=== PATIENT | female | born 1990 | race Caucasian/White ===

== ENCOUNTER 2018-03-09 13:09 | Emergency (ER) | payer SELFPAY ==
[~2018-03-09] VITALS: Ht 167.6 cm; Wt 83.6 kg
[2018-03-09 13:17] VITALS: BP 116/71; PULSE 90; TEMP 99.2
[2018-03-09 15:00] LABS: COLLECTION METHOD CLEAN CATCH
[2018-03-09 15:08] LABS: MUCOUS Present /lpf; PH 5 (5-8); SQUAMOUS EPITHELIAL None Seen /hpf; URINE APPEARANCE Clear; URINE BACTERIA None Seen /hpf; URINE BILIRUBIN Negative (NEGATIVE); URINE BLOOD Negative (NEGATIVE); URINE COLOR Yellow; URINE GLUCOSE Negative (NEGATIVE); URINE KETONE Negative (NEGATIVE); URINE LEUKOCYTE ESTERASE Negative (NEGATIVE); URINE NITRATE Negative (NEGATIVE); URINE PROTEIN(semi-quant) Negative (NEGATIVE); URINE RBC 0-2 /hpf
[2018-03-09] MEDS ORDERED: FLEXERIL 1010 MG/TAB PO (15:40)
[2018-03-09] MEDS ORDERED: ZOFRAN 4MG T4 MG/TAB PO (15:40)
== END 2018-03-09 16:30 | disposition home or self-care (01) ==
LOC: COL.ER 13:09
PROVIDERS: Nurse Practitioner
DX: G43.909 Migraine, unspecified, not intractable, without status migrainosus (principal); M54.5 Low back pain; J45.909 Unspecified asthma, uncomplicated; F17.210 Nicotine dependence, cigarettes, uncomplicated; Z90.49 Acquired absence of other specified parts of digestive tract; Z98.890 Other specified postprocedural states; Z88.0 Allergy status to penicillin; W10.9XXA Fall (on) (from) unspecified stairs and steps, initial encounter
CPT/HCPCS: J1200; J1885; J2360; J2550

== ENCOUNTER 2018-05-01 17:24 | Emergency (ER) | payer SELFPAY ==
[~2018-05-01] VITALS: Ht 167.6 cm; Wt 81.8 kg
[~2018-05-01 17:24] MED LIST: FLEXERIL 1010 MG/TAB PO; ZOFRAN 4MG T4 MG/TAB PO
[2018-05-01 17:31] VITALS: TEMP 98.3
[2018-05-01 18:02] LABS: COLLECTION METHOD CLEAN CATCH
[2018-05-01 18:05] LABS: BASO % 0.4 % (0.0-2.0); EOS # 0.2 (0.0-0.7); EOS % 2.2 % (0-4.0); GRAN # 4.1 (1.4-6.5); LYMPH % 38.6 % (20.0-51.0); MEAN CELL VOLUME 81 fl (80.0-100.0); MEAN CORPUSCULAR HGB CONC 31 g/dl (33.0-37.0); MEAN PLATELET VOLUME 11.7 fl (7.4-10.4); MONO # 0.5 (0.1-0.6); MONO % 6.4 % (1.7-9.3); PLATELET COUNT 228 K/mm3 (130-400); RED BLOOD COUNT 3.67 M/mm3 (4.10-5.30); REDCELL DISTRIBUTION WIDTH-CV 16.8 % (11.5-14.5)
[2018-05-01 18:07] LABS: HEMATOCRIT 29.6 % (37.0-47.0); HEMOGLOBIN 9.1 g/dl (12.5-16.0); MEAN CORPUSCULAR HEMOGLOBIN 25 pg (27.0-31.0)
[2018-05-01 18:09] LABS: PH 6 (5-8); URINE APPEARANCE Clear; URINE BACTERIA None Seen /hpf; URINE BILIRUBIN Negative (NEGATIVE); URINE BLOOD Negative (NEGATIVE); URINE COLOR Yellow; URINE GLUCOSE Negative (NEGATIVE); URINE KETONE Negative (NEGATIVE); URINE LEUKOCYTE ESTERASE Negative (NEGATIVE); URINE NITRATE Negative (NEGATIVE); URINE PROTEIN(semi-quant) Negative (NEGATIVE); URINE RBC 0-2 /hpf; URINE UROBILINOGEN Negative (NEGATIVE)
[2018-05-01 18:15] LABS: ALANINE AMINOTRANSFERASE 29 U/L (9-52); ALBUMIN 4.2 gm/dL (3.5-5.0); ALKALINE PHOSPHATASE 61 U/L (50-136); ANION GAP 7 mmol/L (7-16); AST,SGOT 22 U/L (15-37); BILIRUBIN,TOTAL 0.5 mg/dL (0.0-1.0); BLOOD UREA NITROGEN 9 mg/dL (7-17); CALCIUM 9.4 mg/dL (8.4-10.2); CARBON DIOXIDE 26 mmol/L (22-30); CHLORIDE 109 mmol/L (98-107); CREATININE, serum 0.63 mg/dL (0.52-1.25); GLUCOSE 84 mg/dL (74-106); LIPASE 71 U/L (23-300); SODIUM 142 mmol/L (137-145); TOTAL PROTEIN 7.7 gm/dL (6.4-8.2)
[2018-05-01 18:16] LABS: C-REACTIVE PROTEIN < 0.5 mg/dL (0.0-0.9)
[2018-05-01] MEDS ORDERED: ALBUTEROL S0.4 MG/ML PO (18:17)
[2018-05-01] MEDS ORDERED: ULTRAM 50MG TAB50 MG PO (19:33)
[2018-05-01 19:43] VITALS: BP 99/54; PULSE 77
== END 2018-05-01 19:50 | disposition home or self-care (01) ==
LOC: COL.ER 17:24
PROVIDERS: Nurse Practitioner
DX: R10.31 Right lower quadrant pain (principal); R10.11 Right upper quadrant pain; J45.909 Unspecified asthma, uncomplicated; F17.210 Nicotine dependence, cigarettes, uncomplicated; Z88.0 Allergy status to penicillin; Z90.49 Acquired absence of other specified parts of digestive tract; Z98.890 Other specified postprocedural states
CPT/HCPCS: J1170; J1885; J2405; J7030; Q9967

== ENCOUNTER 2018-05-22 14:53 | Emergency (ER) | payer SELFPAY ==
[~2018-05-22] VITALS: Ht 167.6 cm; Wt 79.5 kg
[~2018-05-22 14:53] MED LIST changes: +ALBUTEROL S0.4 MG/ML PO; +ULTRAM 50MG TAB50 MG PO
[2018-05-22 14:57] VITALS: TEMP 98.2
[2018-05-22 16:32] LABS: COLLECTION METHOD CLEAN CATCH
[2018-05-22 16:37] LABS: BASO % 0.2 % (0.0-2.0); EOS # 0.1 (0.0-0.7); EOS % 0.6 % (0-4.0); GRAN % 88.1 % (42.2-75.2); HEMOGLOBIN 10.1 g/dl (12.5-16.0); LYMPH % 6.5 % (20.0-51.0); MEAN CELL VOLUME 81 fl (80.0-100.0); MEAN CORPUSCULAR HEMOGLOBIN 25 pg (27.0-31.0); MEAN CORPUSCULAR HGB CONC 31 g/dl (33.0-37.0); MEAN PLATELET VOLUME 11.5 fl (7.4-10.4); MONO # 0.7 (0.1-0.6); MONO % 4.2 % (1.7-9.3); PLATELET COUNT 203 K/mm3 (130-400); RED BLOOD COUNT 4.09 M/mm3 (4.10-5.30); REDCELL DISTRIBUTION WIDTH-CV 17.2 % (11.5-14.5)
[2018-05-22 16:39] LABS: HEMATOCRIT 33.1 % (37.0-47.0)
[2018-05-22 16:44] LABS: MUCOUS Present /lpf; PH 5 (5-8); URINE APPEARANCE Hazy; URINE BACTERIA None Seen /hpf; URINE BILIRUBIN Negative (NEGATIVE); URINE BLOOD Negative (NEGATIVE); URINE COLOR Yellow; URINE GLUCOSE Negative (NEGATIVE); URINE KETONE Negative (NEGATIVE); URINE LEUKOCYTE ESTERASE Negative (NEGATIVE); URINE NITRATE Negative (NEGATIVE); URINE PROTEIN(semi-quant) Negative (NEGATIVE); URINE RBC 0-2 /hpf; URINE UROBILINOGEN Negative (NEGATIVE)
[2018-05-22 16:56] LABS: ALBUMIN 4.5 gm/dL (3.5-5.0); BILIRUBIN,TOTAL 0.8 mg/dL (0.0-1.0); CALCIUM 9.5 mg/dL (8.4-10.2); CREATININE, serum 0.74 mg/dL (0.52-1.25); TOTAL PROTEIN 8.3 gm/dL (6.4-8.2)
[2018-05-22 21:46] VITALS: BP 118/72; PULSE 79
== END 2018-05-22 21:52 | disposition home or self-care (01) ==
LOC: COL.ER 14:53
PROVIDERS: Emergency Medicine
DX: K52.9 Noninfective gastroenteritis and colitis, unspecified (principal); B34.9 Viral infection, unspecified; F17.210 Nicotine dependence, cigarettes, uncomplicated; Z90.49 Acquired absence of other specified parts of digestive tract; Z88.0 Allergy status to penicillin
CPT/HCPCS: J2765; J3010; J7030; Q9967

== ENCOUNTER 2018-07-24 14:19 | Emergency (ER) | payer BC ==
[~2018-07-24] VITALS: Ht 167.6 cm; Wt 81.8 kg
[2018-07-24 14:28] VITALS: BP 117/74; TEMP 98.7
[2018-07-24 15:26] LABS: COLLECTION METHOD CLEAN CATCH
[2018-07-24 15:35] LABS: MUCOUS Present /lpf; PH 5 (5-8); URINE APPEARANCE Hazy; URINE BACTERIA Rare /hpf; URINE BILIRUBIN Negative (NEGATIVE); URINE BLOOD Negative (NEGATIVE); URINE COLOR Straw; URINE GLUCOSE Negative (NEGATIVE); URINE KETONE Negative (NEGATIVE); URINE LEUKOCYTE ESTERASE Negative (NEGATIVE); URINE NITRATE Negative (NEGATIVE); URINE PROTEIN(semi-quant) Negative (NEGATIVE); URINE RBC 0-2 /hpf; URINE UROBILINOGEN Negative (NEGATIVE)
[2018-07-24] MEDS ORDERED: NORCO 325 MG-51 TAB PO (16:04)
[2018-07-24 16:13] VITALS: PULSE 76
== END 2018-07-24 16:11 | disposition home or self-care (01) ==
LOC: COL.ER 14:19
PROVIDERS: Nurse Practitioner
DX: M54.5 Low back pain (principal); F17.210 Nicotine dependence, cigarettes, uncomplicated; J45.909 Unspecified asthma, uncomplicated; Z98.890 Other specified postprocedural states; Z90.49 Acquired absence of other specified parts of digestive tract

== ENCOUNTER 2018-10-02 00:57 | Emergency (ER) | payer BC ==
[~2018-10-02] VITALS: Ht 167.6 cm; Wt 79.5 kg
[~2018-10-02 00:57] MED LIST changes: +NORCO 325 MG-51 TAB PO
[2018-10-02 01:02] VITALS: TEMP 97.7
[2018-10-02 01:35] LABS: BASO # 0.1 (0.0-0.2); BASO % 0.5 % (0.0-2.0); EOS # 0.4 (0.0-0.7); GRAN % 49.9 % (42.2-75.2); LYMPH # 3.9 (1.2-3.4); LYMPH % 39.4 % (20.0-51.0); MEAN CELL VOLUME 83 fl (80.0-100.0); MEAN CORPUSCULAR HGB CONC 30 g/dl (33.0-37.0); MEAN PLATELET VOLUME 11.3 fl (7.4-10.4); MONO # 0.6 (0.1-0.6); MONO % 5.9 % (1.7-9.3); PLATELET COUNT 273 K/mm3 (130-400); RED BLOOD COUNT 3.57 M/mm3 (4.10-5.30); REDCELL DISTRIBUTION WIDTH-CV 16.5 % (11.5-14.5)
[2018-10-02 01:36] LABS: HEMATOCRIT 29.6 % (37.0-47.0); HEMOGLOBIN 8.8 g/dl (12.5-16.0); MEAN CORPUSCULAR HEMOGLOBIN 25 pg (27.0-31.0)
[2018-10-02 01:51] LABS: ALBUMIN 4.3 gm/dL (3.5-5.0); BILIRUBIN,TOTAL 0.5 mg/dL (0.0-1.0); C-REACTIVE PROTEIN 0.6 mg/dL (0.0-0.9); CREATININE, serum 0.73 (0.52-1.25); POTASSIUM 3.1 mmol/L (3.4-5.0); TOTAL PROTEIN 8.1 gm/dL (6.4-8.2)
[2018-10-02 02:20] LABS: MAGNESIUM 1.8 mg/dL (1.6-2.3)
[2018-10-02 02:33] LABS: COLLECTION METHOD CLEAN CATCH
[2018-10-02 02:38] LABS: MUCOUS Present /lpf; PH 5 (5-8); URINE APPEARANCE Hazy; URINE BACTERIA Rare /hpf; URINE BILIRUBIN Negative (NEGATIVE); URINE BLOOD Negative (NEGATIVE); URINE COLOR Yellow; URINE GLUCOSE Negative (NEGATIVE); URINE KETONE Negative (NEGATIVE); URINE LEUKOCYTE ESTERASE Negative (NEGATIVE); URINE NITRATE Negative (NEGATIVE); URINE PROTEIN(semi-quant) Negative (NEGATIVE); URINE RBC 0-2 /hpf; URINE UROBILINOGEN Negative (NEGATIVE)
[2018-10-02] MEDS ORDERED: PROTONIX 40MG T40 MG PO (03:32)
[2018-10-02] MEDS ORDERED: CARAFATE 1GM1 G PO (03:32)
[2018-10-02] MEDS ORDERED: ZOFRAN ODT4 MG PO (03:32)
[2018-10-02 03:51] VITALS: BP 115/74; PULSE 63
== END 2018-10-02 03:52 | disposition home or self-care (01) ==
LOC: COL.ER 00:57
PROVIDERS: Emergency Medicine
DX: K29.70 Gastritis, unspecified, without bleeding (principal); D64.9 Anemia, unspecified; G89.29 Other chronic pain; M54.9 Dorsalgia, unspecified; Z90.49 Acquired absence of other specified parts of digestive tract; Z98.51 Tubal ligation status
CPT/HCPCS: J2405; J2550; J7030

== ENCOUNTER → 2018-11-13 | Outpatient (CLI) | payer BC ==
[~2018-11-13] MED LIST changes: +CARAFATE 1GM1 G PO; +PROTONIX 40MG T40 MG PO; +ZOFRAN ODT4 MG PO
== END ==
LOC: COL.RAD 14:37
DX: M54.16 Radiculopathy, lumbar region (principal)

== ENCOUNTER → 2018-12-23 | Outpatient (CLI) | payer BC | LOC: MHCPAIN 10:32 | DX: G89.29 Other chronic pain (principal); M47.817 Spondylosis without myelopathy or radiculopathy, lumbosacral region; M54.16 Radiculopathy, lumbar region; M53.3 Sacrococcygeal disorders, not elsewhere classified | CPT/HCPCS: G0463 ==

== ENCOUNTER → 2018-12-30 | Outpatient (CLI) | payer BC | LOC: COL.RAD 14:15 | DX: N94.6 Dysmenorrhea, unspecified (principal); N92.0 Excessive and frequent menstruation with regular cycle ==

== ENCOUNTER 2019-01-06 21:05 | Emergency (ER) | payer BC ==
[~2019-01-06] VITALS: Ht 167.6 cm; Wt 86.4 kg
[2019-01-06 21:22] VITALS: BP 112/70; TEMP 97.8
[2019-01-06 21:47] LABS: COLLECTION METHOD CLEAN CATCH
[2019-01-06 21:58] LABS: BASO # 0.1 (0.0-0.2); BASO % 0.4 % (0.0-2.0); EOS # 0.2 (0.0-0.7); EOS % 1.8 % (0-4.0); GRAN # 5.4 (1.4-6.5); GRAN % 47.7 % (42.2-75.2); LYMPH # 4.9 (1.2-3.4); LYMPH % 42.7 % (20.0-51.0); MEAN CELL VOLUME 82 fl (80.0-100.0); MEAN CORPUSCULAR HGB CONC 30 g/dl (33.0-37.0); MEAN PLATELET VOLUME 11.1 fl (7.4-10.4); MONO # 0.8 (0.1-0.6); PLATELET COUNT 312 K/mm3 (130-400); RED BLOOD COUNT 3.98 M/mm3 (4.10-5.30); REDCELL DISTRIBUTION WIDTH-CV 17.2 % (11.5-14.5)
[2019-01-06 22:11] LABS: MUCOUS Present /lpf; PH 6 (5-8); URINE APPEARANCE Clear; URINE BACTERIA Rare /hpf; URINE BILIRUBIN Negative (NEGATIVE); URINE BLOOD 3+ (NEGATIVE); URINE COLOR Yellow; URINE GLUCOSE Negative (NEGATIVE); URINE KETONE Negative (NEGATIVE); URINE LEUKOCYTE ESTERASE Negative (NEGATIVE); URINE NITRATE Negative (NEGATIVE); URINE PROTEIN(semi-quant) Negative (NEGATIVE); URINE RBC 20-50 /hpf; URINE UROBILINOGEN Negative (NEGATIVE)
[2019-01-06 22:17] LABS: HEMATOCRIT 32.7 % (37.0-47.0); HEMOGLOBIN 9.8 g/dl (12.5-16.0); MEAN CORPUSCULAR HEMOGLOBIN 25 pg (27.0-31.0)
[2019-01-06 22:38] LABS: ALBUMIN 4.4 gm/dL (3.5-5.0); BILIRUBIN,TOTAL 0.5 mg/dL (0.0-1.0); C-REACTIVE PROTEIN 0.7 mg/dL (0.0-0.9); CALCIUM 9.7 mg/dL (8.4-10.2); CREATININE, serum 0.71 (0.52-1.25); POTASSIUM 3.5 mmol/L (3.4-5.0)
[2019-01-07] MEDS ORDERED: ZOFRAN ODT4 MG PO (00:56)
[2019-01-07] MEDS ORDERED: NORCO 325 MG-51 TAB PO (00:56)
[2019-01-07 01:18] VITALS: PULSE 97
== END 2019-01-07 01:23 | disposition home or self-care (01) ==
LOC: COL.ER 21:05
PROVIDERS: Physician Assistant
DX: R10.9 Unspecified abdominal pain (principal); D53.9 Nutritional anemia, unspecified; R31.9 Hematuria, unspecified; R11.2 Nausea with vomiting, unspecified; Z87.891 Personal history of nicotine dependence; Z90.49 Acquired absence of other specified parts of digestive tract; Z98.51 Tubal ligation status
CPT/HCPCS: J1885; J2270; J2405; J2550; J7030; Q9967

== ENCOUNTER 2019-01-31 16:15 | Emergency (ER) | payer BC ==
[~2019-01-31] VITALS: Ht 167.6 cm; Wt 88.6 kg
[2019-01-31] MEDS ORDERED: NEURONTIN300 MG/CAP PO (16:18)
[2019-01-31] MEDS ORDERED: NAPROSYN500 MG PO (16:19)
[2019-01-31 16:20] VITALS: TEMP 98
[2019-01-31 16:41] LABS: BASO # 0.1 (0.0-0.2); BASO % 0.5 % (0.0-2.0); EOS # 0.1 (0.0-0.7); EOS % 1.2 % (0-4.0); GRAN # 6.4 (1.4-6.5); GRAN % 60.7 % (42.2-75.2); LYMPH # 3.3 (1.2-3.4); LYMPH % 30.8 % (20.0-51.0); MEAN CELL VOLUME 83 fl (80.0-100.0); MEAN CORPUSCULAR HGB CONC 30 g/dl (33.0-37.0); MEAN PLATELET VOLUME 10.5 fl (7.4-10.4); MONO # 0.7 (0.1-0.6); MONO % 6.3 % (1.7-9.3); PLATELET COUNT 381 K/mm3 (130-400); RED BLOOD COUNT 3.79 M/mm3 (4.10-5.30); REDCELL DISTRIBUTION WIDTH-CV 17.6 % (11.5-14.5)
[2019-01-31 16:53] LABS: ALBUMIN 4.3 gm/dL (3.5-5.0); BILIRUBIN,TOTAL 0.6 mg/dL (0.0-1.0); C-REACTIVE PROTEIN 1.1 mg/dL (0.0-0.9); CALCIUM 9.4 mg/dL (8.4-10.2); CREATININE, serum 0.7 (0.52-1.25); POTASSIUM 3.7 mmol/L (3.4-5.0); TOTAL PROTEIN 8.2 gm/dL (6.4-8.2)
[2019-01-31 17:00] LABS: HEMATOCRIT 31.6 % (37.0-47.0); HEMOGLOBIN 9.5 g/dl (12.5-16.0); MEAN CORPUSCULAR HEMOGLOBIN 25 pg (27.0-31.0)
[2019-01-31 18:50] VITALS: BP 109/80; PULSE 77
== END 2019-01-31 18:52 | disposition home or self-care (01) ==
LOC: COL.ER 16:15
PROVIDERS: Emergency Medicine
DX: N93.8 Other specified abnormal uterine and vaginal bleeding (principal); D64.9 Anemia, unspecified; Z90.49 Acquired absence of other specified parts of digestive tract; Z98.51 Tubal ligation status
CPT/HCPCS: J1885; J2405; J3010; J7030; Q9967

== ENCOUNTER 2019-02-20 18:57 | Emergency (ER) | payer SELFPAY ==
[~2019-02-20] VITALS: Ht 167.6 cm; Wt 91.4 kg
[~2019-02-20 18:57] MED LIST changes: +NAPROSYN500 MG PO; +NEURONTIN300 MG/CAP PO
[2019-02-20] MEDS ORDERED: PERCOCET 325 MG1 TA2 (19:26)
[2019-02-20 19:27] VITALS: TEMP 98.2
[2019-02-20] MEDS ORDERED: VRAYLAR3 MG (19:27)
[2019-02-20] MEDS ORDERED: MOTRIN 600600 MG/TAB (19:27)
[2019-02-20 20:29] LABS: BASO # 0.1 (0.0-0.2); BASO % 0.5 % (0.0-2.0); EOS # 0.2 (0.0-0.7); EOS % 2.1 % (0-4.0); GRAN # 6.5 (1.4-6.5); GRAN % 60.2 % (42.2-75.2); LYMPH # 3.2 (1.2-3.4); LYMPH % 29.2 % (20.0-51.0); MEAN CELL VOLUME 85 fl (80.0-100.0); MEAN CORPUSCULAR HGB CONC 30 g/dl (33.0-37.0); MEAN PLATELET VOLUME 11.7 fl (7.4-10.4); MONO # 0.8 (0.1-0.6); MONO % 7.3 % (1.7-9.3); PLATELET COUNT 209 K/mm3 (130-400); RED BLOOD COUNT 3.66 M/mm3 (4.10-5.30); REDCELL DISTRIBUTION WIDTH-CV 18.4 % (11.5-14.5)
[2019-02-20 20:32] LABS: HEMATOCRIT 31.1 % (37.0-47.0); HEMOGLOBIN 9.3 g/dl (12.5-16.0); MEAN CORPUSCULAR HEMOGLOBIN 25 pg (27.0-31.0)
[2019-02-20 20:43] LABS: ALBUMIN 4.1 gm/dL (3.5-5.0); BILIRUBIN,TOTAL 0.3 mg/dL (0.0-1.0); C-REACTIVE PROTEIN 0.7 mg/dL (0.0-0.9); CREATININE, serum 0.6 (0.52-1.25); POTASSIUM 3.3 mmol/L (3.4-5.0); TOTAL PROTEIN 7.5 gm/dL (6.4-8.2)
[2019-02-20 21:07] VITALS: BP 103/65
[2019-02-20 21:10] LABS: COLLECTION METHOD CLEAN CATCH
[2019-02-20 21:23] LABS: MUCOUS Present /lpf; PH 6 (5-8); SQUAMOUS EPITHELIAL >50 /hpf; URINE APPEARANCE Cloudy; URINE BACTERIA Rare /hpf; URINE BILIRUBIN Negative (NEGATIVE); URINE BLOOD 2+ (NEGATIVE); URINE COLOR Yellow; URINE GLUCOSE Negative (NEGATIVE); URINE KETONE Negative (NEGATIVE); URINE LEUKOCYTE ESTERASE 3+ (NEGATIVE); URINE NITRATE Negative (NEGATIVE); URINE PROTEIN(semi-quant) 2+ (NEGATIVE); URINE UROBILINOGEN Negative (NEGATIVE)
[2019-02-20] MEDS ORDERED: OMNICEF 300MG300 MG PO (21:57)
[2019-02-20 22:43] VITALS: PULSE 79
== END 2019-02-20 22:43 | disposition home or self-care (01) ==
LOC: COL.ER 18:57
PROVIDERS: Physician Assistant
DX: N39.0 Urinary tract infection, site not specified (principal); G89.18 Other acute postprocedural pain; Z87.891 Personal history of nicotine dependence; Z98.51 Tubal ligation status; Z90.710 Acquired absence of both cervix and uterus; Z90.49 Acquired absence of other specified parts of digestive tract
CPT/HCPCS: A4216; J0696; J2270; J2405; J7030